=== PATIENT | male | born 1975 | race Caucasian/White ===

== ENCOUNTER 2021-07-15 15:58 | Emergency (ER) | payer MEDICARE, OTHER ==
[~2021-07-15] VITALS: Ht 193 cm; Wt 113.6 kg
[2021-07-15 16:12] VITALS: TEMP 97.3
[2021-07-15] MEDS ORDERED: NEURONTIN300 MG/CAP PO (16:49)
[2021-07-15] MEDS ORDERED: COZAAR100 MG PO (16:49)
[2021-07-15] MEDS ORDERED: CATAPRES0.2 MG PO (16:50)
[2021-07-15] MEDS ORDERED: FLEXERIL 1010 MG/TAB PO (16:50)
[2021-07-15] MEDS ORDERED: PAXIL40 MG PO (16:50)
[2021-07-15 17:19] VITALS: BP 165/112; PULSE 107
== END 2021-07-15 17:21 | disposition home or self-care (01) ==
LOC: COL.ER 15:58
DX: M54.50 Low back pain, unspecified (principal); M25.552 Pain in left hip; M54.2 Cervicalgia; G89.29 Other chronic pain; F41.9 Anxiety disorder, unspecified; Z87.39 Personal history of other diseases of the musculoskeletal system and connective tissue; Z79.899 Other long term (current) drug therapy
CPT/HCPCS: J1885; J2360